=== PATIENT | male | born 1955 | race Caucasian/White ===

== ENCOUNTER 2018-09-15 09:50 | Inpatient (IN) | payer MEDICAID ==
[~2018-09-15] VITALS: Ht 170.2 cm; Wt 81.6 kg
[2018-09-15 10:36] LABS: CHLORIDE 100 mEq/L (98-107); EOSINOPHILS % 1.1 % (0.0-5.0); LYMPHOCYTES % 18.5 % (20.0-50.0); MEAN CORPUSCULAR HEMOGLOBIN 28.9 pg (28.0-32.0); MEAN CORPUSCULAR VOLUME 84.4 fL (80.0-94.0); MEAN PLATELET VOLUME 8.6 fl (7.4-10.4); MONOCYTES % 4.7 % (2.0-8.0); NEUTROPHILS % 74.7 % (40.0-76.0); PLATELET 232 x1000/uL (130-400); RED CELL DISTRIBUTION WIDTH 14.3 % (11.6-14.6)
[2018-09-15] MEDS ORDERED: IOHEXOL-350 100 ML BOTTLE ONE (10:37)
[2018-09-15 10:44] LABS: ETHANOL BLOOD < 10 mg/dL
[2018-09-15 11:13] LABS: INR 1.1; PROTHROMBIN TIME 11.1 sec (9.1-11.1)
[2018-09-15 11:38] LABS: CLARITY URINE CLEAR (CLEAR); COLOR URINE YELLOW (YELLOW); KETONES URINE NEGATIVE (NEGATIVE); LEUKOCYTE ESTERASE URINE NEGATIVE (NEGATIVE); NITRITE URINE NEGATIVE (NEGATIVE); OCCULT BLOOD URINE NEGATIVE (NEGATIVE); PROTEIN URINE NEGATIVE (NEGATIVE); UROBILINOGEN URINE 0.2 E.U./dL (0.2-1.0)
[2018-09-15 12:09] LABS: *AMPHETAMINES SCREEN URINE NEGATIVE (NEGATIVE); *BARBITURATES SCREEN URINE NEGATIVE (NEGATIVE); *BENZODIAZEPINES SCREEN URINE NEGATIVE (NEGATIVE); *COCAINE SCREEN URINE NEGATIVE (NEGATIVE); CANNABINOID URINE SCREEN NEGATIVE (NEGATIVE); METHADONE URINE SCREEN NEGATIVE (NEGATIVE); OPIATES URINE SCREEN NEGATIVE (NEGATIVE); PHENCYCLIDINE URINE SCREEN NEGATIVE (NEGATIVE)
[2018-09-15] MEDS ORDERED: ASPIRIN 325MG TABLET PO ONE (12:30)
[2018-09-15] MEDS ORDERED: ONDANSETRON HCL 4MG/2ML INJ IV PRN (14:15)
[2018-09-15] MEDS ORDERED: MAGNESIUM/ALUMINUM HYDROXIDE/SIMETHICONE 30ML UDC PO PRN (14:15)
[2018-09-15] MEDS ORDERED: HYDROCODONE/ACETAMINOPHEN 5/325MG TABLET PO PRN (14:15)
[2018-09-15] MEDS ORDERED: DOCUSATE SODIUM 100MG CAPSULE PO PRN (14:15)
[2018-09-15] MEDS ORDERED: ACETAMINOPHEN 325MG TABLET PO PRN (14:15)
[2018-09-15] MEDS: CLONIDINE 0.1MG TABLET PO PRN (18:26)
[2018-09-15] MEDS ORDERED: NA PHOS,M-B/NA PHOS,DI-BA ENEMA 118ML PR PRN (21:00)
[2018-09-15 23:00] VITALS: BP 127/70
[2018-09-15] MEDS ORDERED: LISI40TA4 PO (23:41)
[2018-09-15] MEDS ORDERED: AMLO10TA80 PO (23:42)
[2018-09-15] MEDS ORDERED: PANT40TA4 PO (23:42)
[2018-09-15] MEDS ORDERED: METF-816 PO (23:44)
[2018-09-15] MEDS ORDERED: SITA100T11 PO (23:45)
[2018-09-16] MEDS ORDERED: DEXTROSE 50% WATER 50ML SYRINGE IV PRN (02:45)
[2018-09-16 04:00] VITALS: BP 139/69
[2018-09-16] MEDS: BLOOD SUGAR DIAGNOSTIC STRIP TEST SCH ×4 (05:54→20:54)
[2018-09-16 07:47] LABS: BASOPHILS % 1.2 % (0.0-2.0); EOSINOPHILS % 1.5 % (0.0-5.0); HEMATOCRIT. 36.8 % (42.0-52.0); HEMOGLOBIN. 12.4 g/dL (14.0-18.0); LYMPHOCYTES % 20.9 % (20.0-50.0); MEAN CORPUSCULAR HEMOGLOBIN 28.5 pg (28.0-32.0); MEAN CORPUSCULAR VOLUME 84.5 fL (80.0-94.0); MEAN PLATELET VOLUME 8.9 fl (7.4-10.4); MONOCYTES % 5.3 % (2.0-8.0); NEUTROPHILS % 71.1 % (40.0-76.0); PLATELET 225 x1000/uL (130-400); RED BLOOD CELL COUNT 4.36 mill/uL (4.7-6.1); RED CELL DISTRIBUTION WIDTH 14.2 % (11.6-14.6)
[2018-09-16] MEDS: INSULIN LISPRO 100 UNITS/ML SUBCUT SCH ×4 (07:50→21:00)
[2018-09-16 08:00] VITALS: BP 134/69
[2018-09-16 08:55] LABS: CHLORIDE 102 mEq/L (98-107)
[2018-09-16] MEDS: ASPIRIN 81MG EC TABLET PO SCH (09:14)
[2018-09-16] MEDS: AMLODIPINE 10MG TABLET PO SCH (09:15)
[2018-09-16] MEDS: IBUPROFEN 400MG TABLET PO SCH ×3 (09:16→17:00)
[2018-09-16] MEDS: CLOPIDOGREL 75MG TABLET PO SCH (12:28)
[2018-09-16] MEDS: ENOXAPARIN 40MG/0.4ML SYR SUBCUT SCH (12:28)
[2018-09-16 12:40] VITALS: BP 140/68
[2018-09-16 16:29] VITALS: BP 130/55
[2018-09-16 17:49] LABS: T4 FREE 1.06 ng/dL (0.76-1.46)
[2018-09-16 18:04] LABS: FOLIC ACID (FOLATE) SERUM 16.7 ng/mL (>5.38)
[2018-09-16 20:17] VITALS: BP 156/71
[2018-09-16] MEDS: ATORVASTATIN CALCIUM 10MG TABLET PO SCH (21:17)
[2018-09-17] VITALS (7 sets, daily range): BP systolic 135–182; BP diastolic 63–92
[2018-09-17] MEDS: BLOOD SUGAR DIAGNOSTIC STRIP TEST SCH ×4 (07:04→20:46)
[2018-09-17] MEDS: INSULIN LISPRO 100 UNITS/ML SUBCUT SCH ×4 (07:50→20:46)
[2018-09-17] MEDS: AMLODIPINE 10MG TABLET PO SCH (08:42)
[2018-09-17] MEDS: CLOPIDOGREL 75MG TABLET PO SCH (08:42)
[2018-09-17] MEDS: ASPIRIN 81MG EC TABLET PO SCH (08:42)
[2018-09-17] MEDS: IBUPROFEN 400MG TABLET PO SCH ×3 (08:43→18:18)
[2018-09-17] MEDS: ENOXAPARIN 40MG/0.4ML SYR SUBCUT SCH (08:43)
[2018-09-17] MEDS ORDERED: LOSARTAN POTASSIUM 50 MG TABLET PO SCH (12:30)
[2018-09-17] MEDS: CLONIDINE 0.1MG TABLET PO PRN (12:47)
[2018-09-17] MEDS: ATORVASTATIN CALCIUM 10MG TABLET PO SCH (21:03)
== END 2018-09-17 22:04 | DRG 45 ==
LOC: ER 11:56 → 6WST 12:50 → SUPCPDRO 14:57 → ENRESERV 21:42
PROVIDERS: ADMIT Hospitalist; ATTEND Hospitalist
DX: I63.9 Cerebral infarction, unspecified (principal); E87.1 Hypo-osmolality and hyponatremia; G81.91 Hemiplegia, unspecified affecting right dominant side; R41.4 Neurologic neglect syndrome; E11.9 Type 2 diabetes mellitus without complications; D64.9 Anemia, unspecified; R47.1 Dysarthria and anarthria; R26.9 Unspecified abnormalities of gait and mobility; R47.01 Aphasia; E78.5 Hyperlipidemia, unspecified; I10 Essential (primary) hypertension; E78.00 Pure hypercholesterolemia, unspecified; K21.9 Gastro-esophageal reflux disease without esophagitis; Z72.0 Tobacco use; Z82.49 Family history of ischemic heart disease and other diseases of the circulatory system; Z83.3 Family history of diabetes mellitus; Z88.5 Allergy status to narcotic agent
CPT/HCPCS: 36415; 70496; 70498; 70551; 71045; 80061; 80305; 82607; 82746; 82962; 83036; 83721; 84439; 84443; 84481; 84484; 92523; 92610; 93005; 93306; 93880; 93970; 97116; 97162; 97167; 97535; 99291; G0482; J1650; J1815; Q9967